=== PATIENT | female | born 1950 | race Caucasian/White ===

== ENCOUNTER 2017-08-30 08:46 | Inpatient (IN) | payer MEDICARE ==
[~2017-08-30 08:46] MED LIST: CEFAZOLIN 2 Gram 2 GM/50 ML BAG IVPB ONE; CELECOXIB 100 MG CAPSULE PO ONE; FAMOTIDINE 20MG TABLET PO ONE; MECLIZINE 25 MG TABLET PO ONE; METOCLOPRAMIDE 10 MG TABLET PO ONE; VANCOMYCIN HCL 1,000 MG in DEXTROSE 5 % IN WATER 250 ML IVPB ONE
[2017-08-30 11:48] LABS: ABO GROUP A; ANTIBODY SCREEN NEGATIVE (NEGATIVE); RH TYPE POSITIVE
[2017-08-30] MEDS ORDERED: HYDROMORPHONE HCL 2 MG/ML VIAL IV ONE (15:20)
[2017-08-30] MEDS ORDERED: ONDANSETRON HCL IV 4 MG/2 ML VIAL IVP ONE ×2 (15:20→20:45)
[2017-08-30] MEDS ORDERED: PROPOFOL 10 MG/ML VIAL IV ONE (15:20)
[2017-08-30] MEDS ORDERED: MEPIVACAINE HCL/PF (POLOCAINE) 2% 20MG/ML VIAL INJ ONE (15:20)
[2017-08-30] MEDS ORDERED: FENTANYL PF 100MCG/2ML VIAL IV ONE (15:20)
[2017-08-30] MEDS ORDERED: LIDOCAINE 2% MDV (20MG/ML) 20ML VIAL IV ONE (15:20)
[2017-08-30] MEDS ORDERED: DIPHENHYDRAMINE HCL IV 50 MG/ML VIAL IVP ONE (15:20)
[2017-08-30] MEDS ORDERED: MIDAZOLAM HCL 2MG/2ML VIAL IV ONE (15:20)
[2017-08-30] MEDS ORDERED: ACETAMINOPHEN W/ CODEINE 300MG/60MG TABLET PO PRN ×2 (15:25)
[2017-08-30] MEDS ORDERED: DIPHENHYDRAMINE HCL 25 MG CAPSULE PO PRN (15:25)
[2017-08-30] MEDS ORDERED: NALOXONE 0.4 MG/1 ML VIAL IVP PRN (15:25)
[2017-08-30] MEDS ORDERED: BISACODYL 10 MG SUPP RC PRN (15:25)
[2017-08-30] MEDS ORDERED: ZOLPIDEM TARTRATE 5 MG TABLET PO PRN (15:25)
[2017-08-30] MEDS ORDERED: AL HYDROX/MAG HYDROX 30ML UD PO PRN (15:25)
[2017-08-30] MEDS ORDERED: MAGNESIUM HYDROXIDE 30 ML UDC PO PRN (15:25)
[2017-08-30] MEDS ORDERED: ONDANSETRON HCL IV 4 MG/2 ML VIAL IVP PRN (15:25)
[2017-08-30] MEDS ORDERED: TRAMADOL HCL 50 MG TABLET PO PRN (15:25)
[2017-08-30] MEDS ORDERED: ACETAMINOPHEN 325 MG TAB PO PRN (15:25)
[2017-08-30] MEDS ORDERED: HYDROCODONE/APAP 10/325 TABLET PO PRN ×2 (15:25)
[2017-08-30] MEDS ORDERED: KETOROLAC 30 MG/ML VIAL IVP PRN ×2 (15:25)
[2017-08-30] MEDS ORDERED: MEPERIDINE 50 MG/1 ML VIAL IV PRN (15:27)
[2017-08-30] MEDS ORDERED: POTASSIUM CHLORIDE/D5-0.9%NACL 20 MEQ/1,000 ML BAG IV SCH (16:00)
--- NOTE | 2017-08-30 17:10 | Rehab Evaluation ---
Patient Information - Patient Information Diagnosis: Failed LHA Acetabular Component Ordered Treatment: PT Evaluate and Treat Status: Initial Evaluation Surgery: Yes (L MAHI Revision) Date of Surgery: 08/30/17 Past Medical/Surgical Hx: PAST MEDICAL/SURGICAL HISTORY Past Surgical History TLHA d and c kidney stone retreival c section x's 2 c scope PMH - Respiratory Hx Respiratory Disorders No PMH - Cardiovascular Hx Cardiovascular Disorders Yes Hx Hypertension Yes: on meds good control Exercise Tolerance Good Comment: high cholesterol PMH - Neuro Hx Neurological Disorders No PMH - GI Hx Gastrointestinal Disorders No PMH - Hx Genitourinary Disorders Yes Hx Age of Menopause 46 Hx Kidney Stones Yes: hx of PMH - Endocrine Hx Endocrine Disorders No Hx Diabetes No Hx Thyroid Disease No PMH - Musculoskeletal Hx Musculoskeletal Disorders Yes Hx Arthritis Yes Comment: left hip pain PMH - Psych Hx Psychiatric Problems No PMH - Hematology/Oncology Hx Hematology/Oncology Yes Disorders Hx Bruising Yes: bruises easily Social History: Detail (The patient lives in a single story home with her significant other. The home has two steps to enter with a railing on the left side. The patient has a walk-in shower without grab bars, and without shower seat. The patient's toilet is elevated and has grab bars present. The patient states that she will be using a cane primarily for ambulation after surgery, but has access to a 2WW.) Precautions: Other (L MAHI Precautions) - Time With Patient Total Time Spent With Patient (Min): 20 Subjective Information - Subjective Information Per Patient (The patient says that she is still very fatigued and has increased nausea and dizziness at this time. States that there is no pain in the hip.) Objective Data - Pain Pain Present: No Pain Intensity: 0 Pain Scale Used: Numeric (1 - 10) - Mental Status Patient Orientation: Oriented x3 - ROM Within normal limits (Limited in L Hip per precautions. Other LE joints not formally assessed as patient was only able to sit at the bedside.) - Strength/Tone Not within normal limits (Not assessed at initial evaluation as the patient was able to sit at the bedside, but the patient showed functional strength for transferring from supine to sit.) - Bed Mobility Independent (The patient was able to transfer from supine to sit independently, and was able to maintain hip precautions throughout transfer) - Transfers Needs Assist (Not assessed as the patient was too nauseated to complete any transfers at initial evaluation) - Balance Balance Sitting: Good (No LOB while sitting at the bedside.) Balance Standing: Fair (Not assessed as the patient did not transfer to standing due to increased nausea and vomiting.) - Gait Detail (Not assessed due to feelings of nausea and bouts of vomiting. The patient stated that she would not be able to ambulate for those reasons.) Therapy Assessment - Therapy Assessment Detail (The patient was too nauseated to complete most evaluation activities. However, she was able to state her hip precautions. Her gait skills and transfers were not assessed due to vomiting and nausea. The patient was independent with transferring to sitting at the bedside and back. The patient should progress well with inpatient therapy once feelings of nausea subside.) Patient Education - Patient Education Teaching Topic: Precautions (The patient was able to state L MAHI precautions) Response: Verbalize Understanding Teaching Method: Discussion Teaching Recipient: Patient Barriers To Learning: None Problem List - Problem List Physical Therapy Problem List: Detail (1) Gait skills not assessed 2) Stair skills not assessed 3) Limited ROM and strength in L hip as expected s/p surgery 4) Increased nausea) Goals - Goals Physical Therapy Goals: 1) The patient will be able to ambulate household distances to safely return home. 2) The patient will be able to ascend/descend 2 steps to safely enter the home. 3) The patient will be able to maintain hip precautions with bed mobility and transfers. 4) The patient will be able to transfer independently to return home safely. 5) The patient will be independent in HEP to regain ROM and strength to increase overall functionality. Plan - Plan Physical Therapy Plan: The patient will be seen 1-2x/day M-F for gait training, including stairs, transfer training, and LE strengthening activities.
[2017-08-30] MEDS ORDERED: SCOPOLAMINE 1 PATCH TDSY TD ONE (18:32)
[2017-08-30] MEDS ORDERED: PROCHLORPERAZINE 10 MG/2 ML VIAL IVP PRN (18:33)
[2017-08-30] MEDS: CEFAZOLIN 2 Gram 2 GM/50 ML BAG IVPB SCH (21:24)
[2017-08-30] MEDS: DOCUSATE SODIUM 100 MG CAPSULE PO SCH (21:35)
[2017-08-30] MEDS: PATIENT OWN MED: ATENOLOL 50 MG PO SCH (21:35)
[2017-08-31] MEDS: CEFAZOLIN 2 Gram 2 GM/50 ML BAG IVPB SCH ×2 (05:45→12:06)
[2017-08-31] MEDS: POTASSIUM CHLORIDE/D5-0.9%NACL 20 MEQ/1,000 ML BAG IV SCH ×2 (06:28→13:45)
[2017-08-31 06:56] LABS: HEMATOCRIT 31.9 % (35.0-47.0); HEMOGLOBIN 10.1 gm/dl (11.6-16.0)
[2017-08-31 07:15] LABS: BLOOD UREA NITROGEN 13 mg/dL (8-23); CREATININE 0.9 mg/dL (0.5-0.9); EST GLOMERULAR FILTRATION RATE > 60 mL/min; GLUCOSE,RANDOM 116 mg/dL (74-109)
[2017-08-31] MEDS: DOCUSATE SODIUM 100 MG CAPSULE PO SCH (09:56)
[2017-08-31] MEDS: PATIENT OWN MED: ATENOLOL 50 MG PO SCH (09:57)
[2017-08-31] MEDS ORDERED: RIVAROXABAN 10 MG TABLET PO SCH (10:00)
[2017-08-31] MEDS ORDERED: FERROUS SULFATE 325 MG TAB PO SCH (10:00)
[2017-08-31] MEDS ORDERED: SPIRONOLACTONE 25 MG PO SCH (10:00)
[2017-08-31] MEDS ORDERED: MULTIVITAMINS/MINERALS TABLET PO SCH (10:00)
[2017-08-31] MEDS ORDERED: ATORVASTATIN 20 MG TABLET PO SCH (10:00)
[2017-08-31] MEDS ORDERED: SCOPOLAMINE 1 PATCH TDSY TD ONE (10:21)
--- NOTE | 2017-08-31 12:18 | Physical Therapy Tx Note ---
Physical Therapy Tx Note - Treatment Note Tolerated: Good Total Time Spent With Patient: 45 Physical Therapy Tx Note: Detail (Pt reports pain 0/10 just stiffness. Reviewed all hip precautions, reviewed and performed all HEP 5 reps. Pt able to perform bed mobility & transfers, supine<>sit and sit<>stand and ambulation level surfaces and stairs (3, ascending and descending) independently. Ambulation distances 60 ft x2 with 2ww. All goal met, may be discharged but if not released before 3:00pm therapy time stairs may be reviewed again @ patients request.) Physical Therapy Problem List: Detail (1) Gait skills not assessed 2) Stair skills not assessed 3) Limited ROM and strength in L hip as expected s/p surgery 4) Increased nausea) Physical Therapy Goals: 1) The patient will be able to ambulate household distances to safely return home. 2) The patient will be able to ascend/descend 2 steps to safely enter the home. 3) The patient will be able to maintain hip precautions with bed mobility and transfers. 4) The patient will be able to transfer independently to return home safely. 5) The patient will be independent in HEP to regain ROM and strength to increase overall functionality. Prognosis: Good (Pt did very well.) Physical Therapy Plan: The patient will be seen 1-2x/day M-F for gait training, including stairs, transfer training, and LE strengthening activities.
[2017-08-31] MEDS ORDERED: BUPIVACAINE 0.5% W/EPI MPF 30 ML VIAL IVP ONE (12:35)
[2017-08-31] MEDS ORDERED: TRANEXAMIC ACID 1,000 MG/10 ML ML IV ONE (12:35)
--- NOTE | 2017-08-31 15:24 | Rehab Evaluation ---
Patient Information - Patient Information Diagnosis: Failed LHA Acetabular Component Ordered Treatment: OT Evaluate and Treat Status: Initial Evaluation Surgery: Yes (L MAHI Revision) Date of Surgery: 08/30/17 Past Medical/Surgical Hx: PAST MEDICAL/SURGICAL HISTORY Past Surgical History TLHA d and c kidney stone retreival c section x's 2 c scope PMH - Respiratory Hx Respiratory Disorders No PMH - Cardiovascular Hx Cardiovascular Disorders Yes Hx Hypertension Yes: on meds good control Exercise Tolerance Good Comment: high cholesterol PMH - Neuro Hx Neurological Disorders No PMH - GI Hx Gastrointestinal Disorders No PMH - Hx Genitourinary Disorders Yes Hx Age of Menopause 46 Hx Kidney Stones Yes: hx of PMH - Endocrine Hx Endocrine Disorders No Hx Diabetes No Hx Thyroid Disease No PMH - Musculoskeletal Hx Musculoskeletal Disorders Yes Hx Arthritis Yes Comment: left hip pain PMH - Psych Hx Psychiatric Problems No PMH - Hematology/Oncology Hx Hematology/Oncology Yes Disorders Hx Bruising Yes: bruises easily Social History: Detail (The patient lives in a single story home with her significant other. The home has two steps to enter with a railing on the left side. The patient has a walk-in shower with a grab bar just outside the shower, but no shower seat. Pt. reported there is no room to put a shower seat if needed (too small). The patient's toilet is elevated and has a grab bar present. The patient states that she will be using a cane primarily for ambulation after surgery, but has access to a 2WW. Pt. also has a commercial subcontractor and sock aid from previous sx.) Precautions: Other (L MAHI Precautions) - Time With Patient Total Time Spent With Patient (Min): 25 Objective Data - Mental Status Patient Orientation: Oriented x3 - Visual Perception Appears within normal limits for therapeutic activities - ROM Within normal limits (BUE AROM WNL) - Strength/Tone Within normal limits (BUE 4+/5 MMT) - Coordination Appears within normal limits for therapeutic activities - Bed Mobility Independent - Transfers Independent (sit<>stand from EOB and commode to walker.) - Balance Balance Sitting: Good Balance Standing: Fair - Sensation Intact (light touch intact BUE) - ADL's/IADL's Detail (Educ. provided in adaptive dressing techniques, application of hip precautions to ADL's, and review of use of commercial subcontractor. Pt. required min VC to apply precautions to dressing. Pt. dressed total body with modified independence (use of commercial subcontractor), including t-shirt, elastic waist pants, socks, and shoes. Pt. used toilet Ind. Pt. stated she has no questions or concerns about going home.) Therapy Assessment - Therapy Assessment Detail (Pt. does not require in patient OT services at this time. Pt. has a positive support system, AE and knowledge of how to use and apply hip precautions. Pt. safely completed dressing and toileting with modified independence.) Patient Education - Patient Education Teaching Topic: Equipment Use, Precautions Response: Return Demonstration, Verbalize Understanding Teaching Method: Discussion, Demonstration Teaching Recipient: Patient, Significant Other Barriers To Learning: None Problem List - Problem List Physical Therapy Problem List: Detail (1) Gait skills not assessed 2) Stair skills not assessed 3) Limited ROM and strength in L hip as expected s/p surgery 4) Increased nausea) Goals - Goals Physical Therapy Goals: 1) The patient will be able to ambulate household distances to safely return home. 2) The patient will be able to ascend/descend 2 steps to safely enter the home. 3) The patient will be able to maintain hip precautions with bed mobility and transfers. 4) The patient will be able to transfer independently to return home safely. 5) The patient will be independent in HEP to regain ROM and strength to increase overall functionality. Prognosis - Prognosis Good Plan - Plan Physical Therapy Plan: The patient will be seen 1-2x/day M-F for gait training, including stairs, transfer training, and LE strengthening activities. Occupational Therapy Plan: D/C from in pt. OT services. Pt. was educ. to call rehab dept. if she has Q's after arriving home.
--- NOTE | 2017-08-31 19:46 | Discharge Summary ---
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 She was admitted after revision. Postoperatively, initially she was nauseous but that went away. Her hospital course was otherwise unremarkable. She did extremely well. Her discharge hemoglobin was 10.1 and she did not require transfusion. DISCHARGE INSTRUCTIONS: The plan is to discharge her to home in the care of her family. Home PT and Visiting Nurse has been arranged. She will take Xarelto for four days and she will continue with her daily low-dose Aspirin, which she takes chronically. The Visiting Nurse will remove her sutures in two weeks and she will follow-up in my office in four weeks. 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 SECONDARY DIAGNOSIS: ACUTE OPERATIVE BLOOD LOSS ANEMIA. OPERATIONS AND PROCEDURES: REVISION LEFT TOTAL HIP ARTHROPLASTY ACETABULAR COMPONENT. JOB NUMBER: [id number] MTDD
--- NOTE | 2017-08-31 21:05 | Operative Note ---
DATE OF SURGERY: 08/30/2017 PREOPERATIVE DIAGNOSIS: FAILED LEFT TOTAL HIP ARTHROPLASTY ACETABULAR COMPONENT. POSTOPERATIVE DIAGNOSIS: FAILED LEFT TOTAL HIP ARTHROPLASTY ACETABULAR COMPONENT. OPERATION: Revision left total hip arthroplasty acetabular component using a [employer] BIOMEDICAL TECHNICIAN cup with a 10 degree offset for a 52 mm low-profile cup and a replaced +5 32 mm diameter head. STAFF SURGEON: LEBRON MARTINEZ MD ANESTHESIA: SPINAL. PREPARATION: CHLORAPREP. INDIVIDUAL CONSIDERATIONS: NONE. PROCEDURE: The patient was taken to the Operating Room and placed supine on the operating table. She had a successful induction with spinal anesthetic. She was then placed on her side, left side up, and her left leg and hip were prepped and draped in the usual fashion. The patient had a direct posterior approach to the hip. Sharp dissection carried down through the skin and subcutaneous tissue. Small veins were coagulated with a Bovie. The tensor gluteal fascia was opened along the entire length of the incision and deep retractors were placed. The hip was internally rotated. There were really scarred internal rotators. I went ahead and palpated the area at the base of the neck and then with a Bovie did a posterior capsulectomy until I found the neck of the implant. I then went ahead and did a rim capsulectomy posteriorly around the implant, femoral head, and the socket. I then dislocated it posteriorly. I was able to tap off the head. I then went ahead and did a complete rim capsulectomy around the existing implant and then once this was done, I went ahead and popped out the liner. The liner was very thin at the dome and it was just about ready to have catastrophic failure. There was quite a bit of reactive synovium from polyethylene debris, which is probably intracellular and none of it was grossly present in the joint. I finished up the synovectomy, irrigated it out completely with pulsatile Betadine and saline and then I impacted a new liner, which was a 10 degree offset for the BIOMEDICAL TECHNICIAN low-profile socket. I put the offset primarily posteriorly and slightly superiorly. I then trialed it again with another +5 head. Since the liner was new, it actually brought it down a few millimeters and was completely stable, even in full flexion internally rotation I had full stability and full anterior stability in extension externally rotation, so I elected to put a similar +5 head on. I dislocated it with the trial, cleaned off the Reid taper and dried it, impacted a +5 [place] head, and reduced the hip with similar stability. The sciatic nerve was inspected. I could feel it in the posterior scar but I did not go for it because I did not want to injure it but clearly I could feel it tracking posteriorly. After irrigation, hemostasis was obtained with a Bovie. The capsule was then closed with a running #[address] 1 gram of Tranexamic acid mixed with 30 mL of saline deep to this. The patient did receive a gram preoperatively. After closing the fascia, we infiltrated the skin and subcutaneous tissue with 30 mL 0.5% Marcaine with Epinephrine. The subcu was closed in layers with running #0 Quill. The skin was closed with shayy and a sterile Bulkee compressive Aquacel-type dressing was applied. The patient tolerated the procedure well. Needle and sponge counts were correct. Estimated blood loss was minimal, and she was taken back to Recovery in good condition and there were no complications. JOB NUMBER: [id number] MTDD
== END 2017-08-31 15:40 | disposition home health service (06) | DRG 909 ==
LOC: UNDOADMIN 10:49 → MEDSURG 10:49
PROVIDERS: ADMIT Orthopaedic Surgery; ATTEND Orthopaedic Surgery
PROC: 0SPE0JZ Removal of Synthetic Substitute from Left Hip Joint, Acetabular Surface, Open Approach (ICD-10-PCS; 2017-08-30)
PROC: 0SPB09Z Removal of Liner from Left Hip Joint, Open Approach (ICD-10-PCS; 2017-08-30)
PROC: 0SUE09Z Supplement Left Hip Joint, Acetabular Surface with Liner, Open Approach (ICD-10-PCS; 2017-08-30)
PROC: 0SRE00A Replacement of Left Hip Joint, Acetabular Surface with Polyethylene Synthetic Substitute, Uncemented, Open Approach (ICD-10-PCS; principal; 2017-08-30 13:00)
DX: T84.09 Other mechanical complication of internal joint prosthesis (principal); I10 Essential (primary) hypertension; E78.00 Pure hypercholesterolemia, unspecified
CPT/HCPCS: 80048; 85014; 85018; 86850; 86900; 86901; 97110; 97535; J0670; J0780; J1200; J2405; J3480